=== PATIENT | male | born 1965 | race African-American/Black ===

== ENCOUNTER 2021-06-15 14:57 | Emergency (ER) | payer MEDICARE ==
[2021-06-15 18:31] LABS: #Eosinphils 0.2 10x3/uL (0.0-0.5); #Monocytes 0.4 10x3/uL (0.0-1.1); #Neutrophils 3.7 10x3/uL (1.5-8.4); %Basophils 0.3 % (0.0-2.0); %Eosinophils 2.6 % (0.0-6.0); %Lymphocytes 32.4 % (18.0-47.0); %Monocytes 5.6 % (0.0-10.0); %Neutrophils 58.8 % (40.0-75.0); Hemoglobin 10.9 g/dL (13.5-17.5); Mean Corpuscular HGB CONC 30.5 g/dL (32.0-36.0); Mean Corpuscular Hemoglobin 25.5 pg (27.0-33.0); Mean Corpuscular Volume 83.4 fl (81.2-95.1); Mean Platelet Volume 10.6 fl (7.4-10.4); Platelet Count 126 10x3/uL (150-450); RBC Distribution Width 13.7 % (11.5-14.5); Red Blood Cell (RBC) Count 4.28 10x6/uL (4.32-5.72); White Blood Cell (WBC) Count 6.3 10x3/uL (3.5-10.5)
[2021-06-15 18:37] LABS: ALT (SGPT) 8 U/L (8-55); AST (SGOT) 18 U/L (5-34); Albumin 3.8 g/dL (3.5-5.0); Alkaline Phosphatase 85 U/L (40-110); Anion Gap 16 mmol/L (10-20); BUN (Urea Nitrogen) 10 mg/dL (8.4-25.7); Bilirubin, Total 0.3 mg/dL (0.2-1.2); Calc. Creatinine Clearance 0 mL/min (70-130); Calcium 9.7 mg/dL (7.8-10.44); Carbon Dioxide 24 mmol/L (22-29); Chloride 102 mmol/L (98-107); Glucose 91 mg/dL (70-105); Potassium 4.1 mmol/L (3.5-5.1); Protein, Total 8.8 g/dL (6.0-8.3); Sodium 138 mmol/L (136-145)
== END 2021-06-15 20:50 | disposition home or self-care (01) ==
LOC: CSHERS 14:57
DX: E11.621 Type 2 diabetes mellitus with foot ulcer (principal); L97.529 Non-pressure chronic ulcer of other part of left foot with unspecified severity; I10 Essential (primary) hypertension; E78.5 Hyperlipidemia, unspecified; Z89.432 Acquired absence of left foot
CPT/HCPCS: 71045; 80053; 83605; 85025; 94760

== ENCOUNTER 2021-07-27 09:40 | Outpatient (CLI) | payer MEDICARE | END 2021-07-27 09:41 | disposition home or self-care (01) | LOC: CSHWCC 09:40 | PROVIDERS: ATTEND Nurse Practitioner Family | DX: T81.89XD Other complications of procedures, not elsewhere classified, subsequent encounter (principal); R60.0 Localized edema | CPT/HCPCS: 29581; 82962; 97139; G0463; 36416; 99203 ==

== ENCOUNTER 2021-07-30 09:29 | Inpatient (IN) | payer MEDICARE ==
[2021-07-30 10:20] LABS: Hemoglobin 8.4 g/dL (13.5-17.5); Mean Corpuscular HGB CONC 31.5 g/dL (32.0-36.0); Mean Corpuscular Hemoglobin 24.3 pg (27.0-33.0); Mean Corpuscular Volume 77.2 fl (81.2-95.1); Platelet Count 338 10x3/uL (150-450); RBC Distribution Width 13.4 % (11.5-14.5); Red Blood Cell (RBC) Count 3.46 10x6/uL (4.32-5.72); White Blood Cell (WBC) Count 21.7 10x3/uL (3.5-10.5)
[2021-07-30 10:23] LABS: MDiff Complete? YES
[2021-07-30 10:38] LABS: ALT (SGPT) 13 U/L (8-55); AST (SGOT) 23 U/L (5-34); Albumin 3.1 g/dL (3.5-5.0); Alkaline Phosphatase 128 U/L (40-110); Anion Gap 19 mmol/L (10-20); BUN (Urea Nitrogen) 36 mg/dL (8.4-25.7); Bilirubin, Total 2.3 mg/dL (0.2-1.2); Calc. Creatinine Clearance 0 mL/min (70-130); Calcium 8.5 mg/dL (7.8-10.44); Carbon Dioxide 23 mmol/L (22-29); Chloride 92 mmol/L (98-107); Globulin 4.3 g/dL (2.4-3.5); Glucose 161 mg/dL (70-105); Potassium 4.1 mmol/L (3.5-5.1); Protein, Total 7.4 g/dL (6.0-8.3); Sodium 130 mmol/L (136-145)
[2021-07-30] MEDS ORDERED: Cefepime 2 GM VIAL ONE (10:41)
[2021-07-30 10:45] LABS: Band 3 % (5-11); Lymphocytes 4 % (21-51); Monocytes 4 % (0-10); Neutrophil 89 % (42-75)
[2021-07-30 10:46] LABS: Hypochromia SLIGHT = 6-15 cells (100X) (0-5/hpf); Microcytosis SLIGHT = 6-15 cells (100X) (0-5/hpf); Platelet Morphology Comment Appears Adequate
[2021-07-30 10:58] LABS: CKMB 0.4 ng/mL (0-6.6)
[2021-07-30] MEDS ORDERED: Ondansetron PF 4 MG/2 ML Vial ONE ×2 (12:45→15:59)
[2021-07-30] MEDS ORDERED: Bupivacaine PF 0.5% 30 ML VIAL ONE (14:02)
[2021-07-30] MEDS ORDERED: EPINEPHrine 1 MG/ML AMP ONE (14:02)
[2021-07-30] MEDS ORDERED: Fentanyl 100 MCG/2 ML VIAL ONE ×3 (14:06→15:48)
[2021-07-30] MEDS ORDERED: Midazolam HCl 2 mg/2 ml Vial ONE (14:07)
[2021-07-30] MEDS ORDERED: Norepinephrine 4 MG/4 ML VIAL ONE (14:08)
[2021-07-30] MEDS ORDERED: Succinylcholine 200 MG/10 ml SYRINGE FS ONE (14:16)
[2021-07-30] MEDS ORDERED: Phenylephrine 10 MG/ML VIAL ONE (14:21)
[2021-07-30] MEDS ORDERED: Ondansetron PF 4 MG/2 ML Vial IVP PRN (14:26)
[2021-07-30] MEDS ORDERED: Acetaminophen 325 MG TAB PO PRN (14:26)
[2021-07-30] MEDS ORDERED: Ondansetron ODT 4 MG TAB PO PRN (14:26)
[2021-07-30] MEDS ORDERED: Dextrose 5% in Water 1,000 ML IV PRN (14:28)
[2021-07-30] MEDS ORDERED: HumaLOG 300 UNITS/3 ML VIAL SC PRN ×2 (14:28)
[2021-07-30] MEDS ORDERED: Dextrose 50% Abboject 50 ML SYRINGE SLOW IVP PRN (14:28)
[2021-07-30] MEDS ORDERED: hydrALAZINE 20 MG/ML VIAL SLOW IVP PRN (14:30)
[2021-07-30] MEDS ORDERED: Electrolyte Replacement Protocol 1 EACH FS SCH (14:30)
[2021-07-30] MEDS ORDERED: Albumin 5% 250 ML ONE (15:24)
[2021-07-30] MEDS ORDERED: Ketorolac Tromethamine 30 MG/ML VIAL ONE (15:39)
[2021-07-30] MEDS ORDERED: Esmolol 100 MG/10 ML VIAL ONE (15:59)
[2021-07-30 17:57] VITALS: BMI 35.5
[2021-07-30 19:08] LABS: Troponin I 0.184 ng/mL (< 0.028)
[2021-07-30] MEDS ORDERED: VANCOMYCIN 1.25 GM/250 ML BAG 1.25 GM in Premix Bag 1 BAG IVPB SCH ×2 (19:30→21:00)
[2021-07-30] MEDS ORDERED: Clindamycin/D5W 600 mg/50 ml Premix Bag ONE (20:31)
[2021-07-30] MEDS: Cefepime 2 GM in Sodium Chloride 0.9% 100 ML IVPB SCH (20:50)
[2021-07-30] MEDS: Folic Acid 1 MG TAB PO SCH (20:50)
[2021-07-30] MEDS ORDERED: Vancomycin HCl 1 GM in Sodium Chloride 0.9% 250 ML 250 ML IVPB SCH (21:00)
[2021-07-30 21:59] LABS: Hemoglobin 6.9 g/dL (13.5-17.5); Platelet Count 272 10x3/uL (150-450)
[2021-07-30] MEDS: Clindamycin/D5W 600 MG in Premix Bag 1 BAG IVPB SCH (22:30)
[2021-07-31] MEDS: Ferrous Sulfate 325 MG TAB PO SCH ×3 (00:51→17:44)
[2021-07-31] MEDS ORDERED: Clindamycin/D5W 600 mg/50 ml Premix Bag ONE (04:59)
[2021-07-31] MEDS: Furosemide 40 MG TAB PO SCH ×2 (06:00→17:44)
[2021-07-31] MEDS: Clindamycin/D5W 600 MG in Premix Bag 1 BAG IVPB SCH ×2 (06:01→15:00)
[2021-07-31 06:47] LABS: #Basophils 0.1 10x3/uL (0.0-0.2); #Eosinphils 0.1 10x3/uL (0.0-0.5); #Monocytes 0.7 10x3/uL (0.0-1.1); #Neutrophils 9.6 10x3/uL (1.5-8.4); %Basophils 0.5 % (0.0-2.0); %Eosinophils 0.9 % (0.0-6.0); %Lymphocytes 13.7 % (18.0-47.0); %Monocytes 5.9 % (0.0-10.0); Hemoglobin 8.5 g/dL (13.5-17.5); Mean Corpuscular HGB CONC 31.7 g/dL (32.0-36.0); Mean Corpuscular Volume 78.8 fl (81.2-95.1); Mean Platelet Volume 9.8 fl (7.4-10.4); Platelet Count 274 10x3/uL (150-450); RBC Distribution Width 13.9 % (11.5-14.5); White Blood Cell (WBC) Count 12.3 10x3/uL (3.5-10.5)
[2021-07-31 07:00] LABS: Anion Gap 15 mmol/L (10-20); BUN (Urea Nitrogen) 38 mg/dL (8.4-25.7); Calc. Creatinine Clearance 95 mL/min (70-130); Calcium 8.9 mg/dL (7.8-10.44); Carbon Dioxide 26 mmol/L (22-29); Chloride 99 mmol/L (98-107); Glucose 109 mg/dL (70-105); Phosphorus 4.7 mg/dL (2.3-4.7); Potassium 3.9 mmol/L (3.5-5.1); Sodium 136 mmol/L (136-145)
[2021-07-31] MEDS ORDERED: Ezetimibe 10 MG TAB PO SCH (09:00)
[2021-07-31] MEDS: Folic Acid 1 MG TAB PO SCH ×2 (10:01→20:49)
[2021-07-31] MEDS: Potassium Chloride 20 MEQ TAB PO SCH (10:01)
[2021-07-31] MEDS: Atorvastatin Calcium 20 MG TAB PO SCH (10:01)
[2021-07-31] MEDS: Cefepime 2 GM in Sodium Chloride 0.9% 100 ML IVPB SCH (10:02)
[2021-07-31] MEDS ORDERED: VANCOMYCIN 1.25 GM/250 ML BAG 1.25 GM in Premix Bag 1 BAG IVPB SCH (11:00)
[2021-07-31] MEDS: Morphine 2 MG/ML VIAL SLOW IVP PRN ×2 (11:21→20:49)
[2021-07-31] MEDS ORDERED: Magnesium 2 GM/50 ML(in water) 2 GM in Premix Bag 1 BAG IVPB SCH ×2 (12:00→17:30)
[2021-07-31] MEDS ORDERED: Morphine 4 MG/ML VIAL ONE (12:53)
[2021-07-31] MEDS ORDERED: Morphine 4 MG/ML VIAL SLOW IVP PRN (13:01)
[2021-07-31] MEDS ORDERED: Meropenem 1 GM in Sodium Chloride 0.9% 100 ML IVPB SCH (16:00)
[2021-07-31] MEDS: Meropenem 1 GM in Sodium Chloride 0.9% 100 ML IVPB SCH (23:58)
[2021-08-01 05:19] LABS: #Eosinphils 0.2 10x3/uL (0.0-0.5); #Monocytes 0.6 10x3/uL (0.0-1.1); %Basophils 0.4 % (0.0-2.0); %Eosinophils 2.1 % (0.0-6.0); %Lymphocytes 10.2 % (18.0-47.0); %Monocytes 6.1 % (0.0-10.0); %Neutrophils 80.5 % (40.0-75.0); Hemoglobin 8.3 g/dL (13.5-17.5); Mean Corpuscular HGB CONC 32.3 g/dL (32.0-36.0); Mean Corpuscular Hemoglobin 25.2 pg (27.0-33.0); Mean Corpuscular Volume 78.1 fl (81.2-95.1); Mean Platelet Volume 9.8 fl (7.4-10.4); Platelet Count 325 10x3/uL (150-450); RBC Distribution Width 13.6 % (11.5-14.5); Red Blood Cell (RBC) Count 3.29 10x6/uL (4.32-5.72)
[2021-08-01 05:31] LABS: Anion Gap 14 mmol/L (10-20); BUN (Urea Nitrogen) 27 mg/dL (8.4-25.7); Calc. Creatinine Clearance 124 mL/min (70-130); Calcium 8.8 mg/dL (7.8-10.44); Carbon Dioxide 24 mmol/L (22-29); Chloride 98 mmol/L (98-107); Glucose 167 mg/dL (70-105); Magnesium 2.1 mg/dL (1.6-2.6); Potassium 3.9 mmol/L (3.5-5.1); Sodium 132 mmol/L (136-145)
[2021-08-01] MEDS: Potassium Chloride 20 MEQ TAB PO SCH (09:01)
[2021-08-01] MEDS: Atorvastatin Calcium 20 MG TAB PO SCH (09:02)
[2021-08-01] MEDS: Ferrous Sulfate 325 MG TAB PO SCH ×2 (09:02→18:02)
[2021-08-01] MEDS: Folic Acid 1 MG TAB PO SCH ×2 (09:02→21:24)
[2021-08-01] MEDS: Meropenem 1 GM in Sodium Chloride 0.9% 100 ML IVPB SCH ×2 (09:03→18:01)
[2021-08-01] MEDS ORDERED: Phenylephrine 40 MG/NS 250 ML 0 ML ONE (11:22)
[2021-08-01] MEDS ORDERED: Fentanyl 100 MCG/2 ML VIAL ONE (11:27)
[2021-08-01] MEDS ORDERED: Ketorolac Tromethamine 30 MG/ML VIAL ONE (11:28)
[2021-08-01] MEDS ORDERED: Rocuronium Bromide 10 MG/ML (10ML VIAL) ONE (11:28)
[2021-08-01] MEDS ORDERED: Lidocaine 2% PF 5 ML VIAL ONE (11:28)
[2021-08-01] MEDS ORDERED: Metoclopramide HCl 10 MG/2 ML VIAL ONE (11:28)
[2021-08-01] MEDS ORDERED: Ondansetron PF 4 MG/2 ML Vial ONE (11:28)
[2021-08-01] MEDS ORDERED: ePHEDrine Sulfate 50 MG/10 ML VIAL ONE (11:31)
[2021-08-01] MEDS ORDERED: PHENYLEPHRINE-NS 100 MCG/ML 10 ML SYRINGE ONE ×2 (11:32→13:23)
[2021-08-01] MEDS ORDERED: Glycopyrrolate 0.2 MG/ML 5 ML SYRINGE ONE (14:11)
[2021-08-01] MEDS: Aspirin Chewable 81 MG TAB PO SCH (14:19)
[2021-08-01] MEDS: Furosemide 40 MG TAB PO SCH (14:19)
[2021-08-01] MEDS: Empagliflozin 10 MG TAB PO SCH (14:19)
[2021-08-01] MEDS: Morphine 2 MG/ML VIAL SLOW IVP PRN (21:30)
[2021-08-02] MEDS: Meropenem 1 GM in Sodium Chloride 0.9% 100 ML IVPB SCH ×3 (00:51→17:50)
[2021-08-02] MEDS: Morphine 2 MG/ML VIAL SLOW IVP PRN ×2 (01:14→08:24)
[2021-08-02] MEDS: Furosemide 40 MG TAB PO SCH ×2 (06:16→17:51)
[2021-08-02] MEDS: Ferrous Sulfate 325 MG TAB PO SCH ×2 (08:16→17:51)
[2021-08-02] MEDS: Atorvastatin Calcium 20 MG TAB PO SCH (08:17)
[2021-08-02] MEDS: Folic Acid 1 MG TAB PO SCH ×2 (08:17→21:40)
[2021-08-02] MEDS: Potassium Chloride 20 MEQ TAB PO SCH (08:17)
[2021-08-02] MEDS: Aspirin Chewable 81 MG TAB PO SCH (08:17)
[2021-08-02] MEDS: Empagliflozin 10 MG TAB PO SCH (08:17)
[2021-08-02] MEDS ORDERED: HYDROcodone/Acetaminophen 10/325 mg Tablet PO PRN ×2 (08:33)
[2021-08-02] MEDS ORDERED: Morphine 2 MG/ML VIAL SLOW IVP SCH (08:45)
[2021-08-02] MEDS ORDERED: Morphine 4 MG/ML VIAL SLOW IVP SCH (08:45)
[2021-08-02] MEDS: Gabapentin 300 MG CAP PO SCH ×2 (09:03→21:40)
[2021-08-02] MEDS ORDERED: Gabapentin 300 MG CAP PO SCH (09:15)
[2021-08-02] MEDS ORDERED: fentaNYL Citrate/PF 2,000 MCG in Sodium Chloride 0.9% 60 ML IV PRN ×2 (16:46→17:19)
[2021-08-02] MEDS ORDERED: diphenhydrAMINE 50 MG/ML VIAL IVP PRN (16:46)
[2021-08-02] MEDS ORDERED: Zolpidem Tartrate 5 MG TAB PO PRN (16:46)
[2021-08-02] MEDS ORDERED: diphenhydrAMINE 50 MG/ML VIAL IM PRN (16:46)
[2021-08-02] MEDS ORDERED: Naloxone HCl 0.4 mg/ml Vial IV PRN (16:46)
[2021-08-02] MEDS ORDERED: diphenhydrAMINE 25 MG CAP PO PRN (16:46)
[2021-08-02] MEDS ORDERED: Ondansetron PF 4 MG/2 ML Vial IVP PRN (16:46)
[2021-08-02] MEDS ORDERED: Communication Order-Pharmacy FS PRN (17:00)
[2021-08-02] MEDS ORDERED: fentaNYL Citrate/PF 1,000 MCG, Admixture Fee 1 EACH in Sodium Chloride 0.9% 30 ML IV PRN (17:30)
[2021-08-03] MEDS: Meropenem 1 GM in Sodium Chloride 0.9% 100 ML IVPB SCH ×3 (00:37→17:23)
[2021-08-03 05:20] LABS: #Eosinphils 0.2 10x3/uL (0.0-0.5); #Monocytes 0.9 10x3/uL (0.0-1.1); #Neutrophils 7.6 10x3/uL (1.5-8.4); %Basophils 0.3 % (0.0-2.0); %Eosinophils 1.5 % (0.0-6.0); %Lymphocytes 16.2 % (18.0-47.0); %Monocytes 8.7 % (0.0-10.0); %Neutrophils 71.7 % (40.0-75.0); Hemoglobin 6.4 g/dL (13.5-17.5); Mean Corpuscular HGB CONC 31.8 g/dL (32.0-36.0); Mean Corpuscular Hemoglobin 24.8 pg (27.0-33.0); Mean Corpuscular Volume 77.9 fl (81.2-95.1); Mean Platelet Volume 9.3 fl (7.4-10.4); Platelet Count 357 10x3/uL (150-450); RBC Distribution Width 13.9 % (11.5-14.5); Red Blood Cell (RBC) Count 2.58 10x6/uL (4.32-5.72); White Blood Cell (WBC) Count 10.6 10x3/uL (3.5-10.5)
[2021-08-03 05:25] LABS: Anion Gap 16 mmol/L (10-20); BUN (Urea Nitrogen) 16 mg/dL (8.4-25.7); Calc. Creatinine Clearance 128 mL/min (70-130); Calcium 8.5 mg/dL (7.8-10.44); Carbon Dioxide 24 mmol/L (22-29); Chloride 99 mmol/L (98-107); Glucose 145 mg/dL (70-105); Potassium 4.3 mmol/L (3.5-5.1); Sodium 135 mmol/L (136-145)
[2021-08-03] MEDS: Furosemide 40 MG TAB PO SCH ×2 (06:11→13:33)
[2021-08-03] MEDS: Gabapentin 300 MG CAP PO SCH ×2 (09:22→21:02)
[2021-08-03] MEDS: Potassium Chloride 20 MEQ TAB PO SCH (09:22)
[2021-08-03] MEDS: Empagliflozin 10 MG TAB PO SCH (09:23)
[2021-08-03] MEDS: Ferrous Sulfate 325 MG TAB PO SCH ×2 (09:23→17:23)
[2021-08-03] MEDS: Folic Acid 1 MG TAB PO SCH ×2 (09:23→21:20)
[2021-08-03] MEDS: Atorvastatin Calcium 20 MG TAB PO SCH (09:23)
[2021-08-03] MEDS: Aspirin Chewable 81 MG TAB PO SCH ×2 (09:24→09:33)
[2021-08-04] MEDS: Meropenem 1 GM in Sodium Chloride 0.9% 100 ML IVPB SCH ×3 (02:38→16:23)
[2021-08-04 04:48] LABS: #Eosinphils 0.2 10x3/uL (0.0-0.5); #Monocytes 0.9 10x3/uL (0.0-1.1); #Neutrophils 9.6 10x3/uL (1.5-8.4); %Basophils 0.2 % (0.0-2.0); %Eosinophils 1.4 % (0.0-6.0); %Lymphocytes 14.3 % (18.0-47.0); %Neutrophils 75.4 % (40.0-75.0); Hemoglobin 8.1 g/dL (13.5-17.5); Mean Corpuscular HGB CONC 32.7 g/dL (32.0-36.0); Mean Corpuscular Volume 79.7 fl (81.2-95.1); Mean Platelet Volume 9.2 fl (7.4-10.4); Platelet Count 433 10x3/uL (150-450); RBC Distribution Width 14.6 % (11.5-14.5); Red Blood Cell (RBC) Count 3.11 10x6/uL (4.32-5.72); White Blood Cell (WBC) Count 12.8 10x3/uL (3.5-10.5)
[2021-08-04 05:41] LABS: Anion Gap 17 mmol/L (10-20); BUN (Urea Nitrogen) 11 mg/dL (8.4-25.7); Calc. Creatinine Clearance 135 mL/min (70-130); Carbon Dioxide 23 mmol/L (22-29); Chloride 100 mmol/L (98-107); Glucose 129 mg/dL (70-105); Potassium 4.4 mmol/L (3.5-5.1); Sodium 136 mmol/L (136-145)
[2021-08-04] MEDS: Furosemide 40 MG TAB PO SCH ×2 (07:24→13:13)
[2021-08-04] MEDS: Ferrous Sulfate 325 MG TAB PO SCH ×2 (09:08→16:24)
[2021-08-04] MEDS: Folic Acid 1 MG TAB PO SCH ×2 (09:08→19:59)
[2021-08-04] MEDS: Potassium Chloride 20 MEQ TAB PO SCH (09:08)
[2021-08-04] MEDS: Gabapentin 300 MG CAP PO SCH ×2 (09:09→19:59)
[2021-08-04] MEDS: Atorvastatin Calcium 20 MG TAB PO SCH (09:09)
[2021-08-04] MEDS: Aspirin Chewable 81 MG TAB PO SCH (09:10)
[2021-08-04] MEDS: Empagliflozin 10 MG TAB PO SCH (09:10)
[2021-08-04 21:55] VITALS: BP 125/58; TEMP 97.5
== END 2021-08-04 20:20 | DRG 853 ==
LOC: CSHERS 09:29 → CSHTELE 13:34
PROVIDERS: ADMIT Internal Medicine; ATTEND Internal Medicine
PROC: 0Y6N0Z0 Detachment at Left Foot, Complete, Open Approach (ICD-10-PCS; principal; 2021-07-30)
PROC: 3E03329 Introduction of Other Anti-infective into Peripheral Vein, Percutaneous Approach (ICD-10-PCS; 2021-07-30)
PROC: 30233N1 Transfusion of Nonautologous Red Blood Cells into Peripheral Vein, Percutaneous Approach (ICD-10-PCS; 2021-07-31)
PROC: 0Y6J0Z1 Detachment at Left Lower Leg, High, Open Approach (ICD-10-PCS; 2021-08-01)
DX: A41.9 Sepsis, unspecified organism (principal); A48.0 Gas gangrene; E11.52 Type 2 diabetes mellitus with diabetic peripheral angiopathy with gangrene; N17.9 Acute kidney failure, unspecified; I24.8 Other forms of acute ischemic heart disease; I42.9 Cardiomyopathy, unspecified; I13.0 Hypertensive heart and chronic kidney disease with heart failure and stage 1 through stage 4 chronic kidney disease, or unspecified chronic kidney disease; I50.20 Unspecified systolic (congestive) heart failure; T87.44 Infection of amputation stump, left lower extremity; E78.5 Hyperlipidemia, unspecified; D63.1 Anemia in chronic kidney disease; Z20.822 Contact with and (suspected) exposure to COVID-19; R60.0 Localized edema; T87.54 Necrosis of amputation stump, left lower extremity; N18.9 Chronic kidney disease, unspecified; Z79.82 Long term (current) use of aspirin; Z79.899 Other long term (current) drug therapy; Z79.84 Long term (current) use of oral hypoglycemic drugs; Z90.49 Acquired absence of other specified parts of digestive tract; Z89.419 Acquired absence of unspecified great toe; Z89.422 Acquired absence of other left toe(s); Z91.14 Patient's other noncompliance with medication regimen; Z91.19 Patient's noncompliance with other medical treatment and regimen; T81.89XD Other complications of procedures, not elsewhere classified, subsequent encounter
CPT/HCPCS: 29581; 36415; 36416; 36430; 71045; 74176; 80048; 80053; 82553; 83605; 83735; 83880; 84100; 84484; 85025; 86850; 86900; 86901; 87040; 87070; 87076; 87077; 87186; 87205; 88307; 88311; 93005; 94760; 96365; 96366; 96368; 96375; 99203; G0463; J0171; J0692; J1815; J1885; J2001; J2185; J2250; J2270; J2370; J2405; J2765; J3010; J3370; J3475; J3490; P9016; P9045; S0020; U0003; U0005

== ENCOUNTER 2021-09-12 09:00 | Outpatient (CLI) | payer MEDICARE | END 2021-09-12 09:01 | disposition home or self-care (01) | LOC: CSHWCC 09:00 | PROVIDERS: ATTEND Nurse Practitioner Family | DX: T87.89 Other complications of amputation stump (principal); Z89.412 Acquired absence of left great toe ==

== ENCOUNTER 2021-09-15 15:40 | Outpatient (CLI) | payer MEDICARE | END 2021-09-15 15:41 | disposition home or self-care (01) | LOC: CSHWCC 15:40 | PROVIDERS: ATTEND Nurse Practitioner Family | DX: T87.89 Other complications of amputation stump (principal); Z89.512 Acquired absence of left leg below knee ==

== ENCOUNTER 2021-09-20 13:03 | Outpatient (CLI) | payer MEDICARE | END 2021-09-20 13:04 | disposition home or self-care (01) | LOC: CSHWCC 13:03 | PROVIDERS: ATTEND Nurse Practitioner Family | DX: T87.89 Other complications of amputation stump (principal); Z89.512 Acquired absence of left leg below knee ==

== ENCOUNTER 2021-09-23 11:48 | Outpatient (CLI) | payer MEDICARE | END 2021-09-23 11:49 | disposition home or self-care (01) | LOC: CSHWCC 11:48 | PROVIDERS: ATTEND Nurse Practitioner Family | DX: T87.89 Other complications of amputation stump (principal); Z89.512 Acquired absence of left leg below knee | CPT/HCPCS: 97605 ==

== ENCOUNTER 2021-09-27 13:36 | Outpatient (CLI) | payer MEDICARE | END 2021-09-27 13:37 | disposition home or self-care (01) | LOC: CSHWCC 13:36 | PROVIDERS: ATTEND Nurse Practitioner Family | DX: T87.89 Other complications of amputation stump (principal); Z89.512 Acquired absence of left leg below knee ==

== ENCOUNTER 2021-09-30 09:29 | Outpatient (CLI) | payer MEDICARE | END 2021-09-30 09:30 | disposition home or self-care (01) | LOC: CSHWCC 09:29 | PROVIDERS: ATTEND Nurse Practitioner Family | DX: T87.89 Other complications of amputation stump (principal) | CPT/HCPCS: 11042; 11045; 97605 ==

== ENCOUNTER 2021-10-04 09:53 | Outpatient (CLI) | payer MEDICARE | END 2021-10-04 09:54 | disposition home or self-care (01) | LOC: CSHWCC 09:53 | PROVIDERS: ATTEND Nurse Practitioner Family | DX: T87.89 Other complications of amputation stump (principal) | CPT/HCPCS: 97605 ==

== ENCOUNTER 2021-10-07 09:02 | Outpatient (CLI) | payer MEDICARE | END 2021-10-07 09:03 | disposition home or self-care (01) | LOC: CSHWCC 09:02 | PROVIDERS: ATTEND Nurse Practitioner Family | DX: T87.89 Other complications of amputation stump (principal); Z89.512 Acquired absence of left leg below knee ==

== ENCOUNTER 2021-10-11 15:06 | Outpatient (CLI) | payer MEDICARE | END 2021-10-11 15:07 | disposition home or self-care (01) | LOC: CSHWCC 15:06 | PROVIDERS: ATTEND Nurse Practitioner Family | DX: T87.89 Other complications of amputation stump (principal); Z89.512 Acquired absence of left leg below knee | CPT/HCPCS: 97139; G0463; 99213 ==

== ENCOUNTER 2021-10-14 08:58 | Outpatient (CLI) | payer MEDICARE | END 2021-10-14 08:59 | disposition home or self-care (01) | LOC: CSHWCC 08:58 | PROVIDERS: ATTEND Nurse Practitioner Family | DX: T87.89 Other complications of amputation stump (principal); Z89.512 Acquired absence of left leg below knee | CPT/HCPCS: 99212; G0463 ==

== ENCOUNTER 2021-10-25 15:17 | Outpatient (CLI) | payer MEDICARE | END 2021-10-25 15:18 | disposition home or self-care (01) | LOC: CSHWCC 15:17 | PROVIDERS: ATTEND Nurse Practitioner Family | DX: T87.89 Other complications of amputation stump (principal); Z89.512 Acquired absence of left leg below knee | CPT/HCPCS: 97139; G0463; 17250; 99213 ==

== ENCOUNTER 2021-10-28 11:00 | Outpatient (CLI) | payer MEDICARE | END 2021-10-28 11:01 | disposition home or self-care (01) | LOC: CSHWCC 11:00 | PROVIDERS: ATTEND Preventive Medicine Undersea and Hyperbaric Medicine | DX: T87.89 Other complications of amputation stump (principal) | CPT/HCPCS: 97139; G0463; 99213 ==

== ENCOUNTER 2021-11-01 11:48 | Outpatient (CLI) | payer MEDICARE | END 2021-11-01 11:49 | disposition home or self-care (01) | LOC: CSHWCC 11:48 | PROVIDERS: ATTEND Preventive Medicine Undersea and Hyperbaric Medicine | DX: T87.89 Other complications of amputation stump (principal); Z89.512 Acquired absence of left leg below knee | CPT/HCPCS: 99213; G0463 ==

== ENCOUNTER 2021-11-04 09:05 | Outpatient (CLI) | payer MEDICARE | END 2021-11-04 09:06 | disposition home or self-care (01) | LOC: CSHWCC 09:05 | PROVIDERS: ATTEND Nurse Practitioner Family | DX: T87.89 Other complications of amputation stump (principal); Z89.512 Acquired absence of left leg below knee | CPT/HCPCS: 99213; G0463 ==

== ENCOUNTER 2021-11-15 11:03 | Outpatient (CLI) | payer MEDICARE | END 2021-11-15 11:04 | disposition home or self-care (01) | LOC: CSHWCC 11:03 | PROVIDERS: ATTEND Preventive Medicine Undersea and Hyperbaric Medicine | DX: T87.89 Other complications of amputation stump (principal); Z89.512 Acquired absence of left leg below knee | CPT/HCPCS: 97139; G0463; 99212 ==

== ENCOUNTER 2021-11-30 10:19 | Outpatient (CLI) | payer MEDICARE | END 2021-11-30 10:20 | disposition home or self-care (01) | LOC: CSHWCC 10:19 | PROVIDERS: ATTEND Preventive Medicine Undersea and Hyperbaric Medicine | DX: T87.89 Other complications of amputation stump (principal); Z89.512 Acquired absence of left leg below knee | CPT/HCPCS: 99212; G0463 ==

== ENCOUNTER 2021-12-14 11:05 | Outpatient (CLI) | payer MEDICARE | END 2021-12-14 11:06 | disposition home or self-care (01) | LOC: CSHWCC 11:05 | PROVIDERS: ATTEND Preventive Medicine Undersea and Hyperbaric Medicine | DX: T87.89 Other complications of amputation stump (principal) ==

== ENCOUNTER 2022-01-18 13:25 | Outpatient (CLI) | payer MEDICARE | END 2022-01-18 13:26 | disposition home or self-care (01) | LOC: CSHWCC 13:25 | PROVIDERS: ATTEND Nurse Practitioner Family | DX: T87.89 Other complications of amputation stump (principal) | CPT/HCPCS: 99212; G0463 ==

== ENCOUNTER 2023-06-03 20:28 | Emergency (ER) | payer MEDICARE, OTHER ==
[~2023-06-03 20:28] MED LIST: Iopamidol 300 61% 100 ML VIAL FS ONE
== END 2023-06-03 22:18 | disposition home or self-care (01) ==
LOC: CSHERS 20:28
DX: Z04.1 Encounter for examination and observation following transport accident (principal); I13.0 Hypertensive heart and chronic kidney disease with heart failure and stage 1 through stage 4 chronic kidney disease, or unspecified chronic kidney disease; E11.22 Type 2 diabetes mellitus with diabetic chronic kidney disease; N18.9 Chronic kidney disease, unspecified; I50.9 Heart failure, unspecified; E78.5 Hyperlipidemia, unspecified; Z55.6 Problems related to health literacy
CPT/HCPCS: 71260; 74177; Q9967